=== PATIENT | male | born 1965 | race Hispanic/Latino ===

== ENCOUNTER 2019-07-16 07:24 | Day surgery (SDC) | payer SELFPAY ==
[2019-07-15 13:25] VITALS: BP 136/76
[~2019-07-16] VITALS: Ht 165.1 cm; Wt 77.7 kg
--- NOTE | 2019-07-16 07:25 | NUR ---
PRE-PROCEDURE RECEIVED TO DAY 7 FOR SCHEDULED ABCESSOGRAM VIA AMBULATING. AWAKE IN NO ACUTE DISTRESS. DENIES PAIN. DRAIN PRESENT TO Q ABDOMEN DRAINING SEROUSANGINOUS DRAINAGE. CONNECTED TO CONTINUOUS CARDIOPULMONARY MONITORING. SIDE RAILS UP X2, BED IN LOWEST POSITION, AND CALL LIGHT W/IN REACH.
[2019-07-16 07:35] VITALS: BP_SYST 125; BP_SYST 134; BP_DIAS 72; BP_DIAS 75
[2019-07-16 07:47] LABS: MEAN CORPUSCULAR HEMOGLOBIN 30.1 pg (27.0-33.0); MEAN CORPUSCULAR HGB CONC 33.3 g/dL (32.0-36.0); MEAN CORPUSCULAR VOLUME 90.4 fL (79-99); PLATELET COUNT (AUTO) 382 K/uL (130-400); RED BLOOD CELL COUNT(AUTO) 4.64 MIL/uL (4.50-6.20); WHITE BLOOD COUNT (AUTO) 6.9 K/uL (4.8-10.8)
[2019-07-16] MEDS ORDERED: SODIUM CHLORIDE 0.9% 1000ML 1,000 ML IV ONE (08:00)
--- NOTE | 2019-07-16 08:25 | NUR ---
PROCEDURE TRANSFERRED TO CR[employer] PORTFOLIO ADVISOR VIA BED FOR SCHEDULED ABSCESSOGRAM BY ROXY RODRIGUEZ RN. AWAKE IN NO ACUTE DISTRESS.
[2019-07-16] MEDS ORDERED: LIDOCAINE HCL 1% MDV 50ML VIAL ONE (08:44)
[2019-07-16] MEDS ORDERED: IODIXANOL 320 MG/ML 100 ML VIAL ONE (08:44)
[2019-07-16 09:23] VITALS: BP 125/72
--- NOTE | 2019-07-16 09:23 | NUR ---
POST-PROCEDURE RECEIVED FROM [employer] OPERATOR VIA BED S/P ABSCESSOGRAM AND DRAIN REMOVAL BY ROXY RODRIGUEZ RN. AWAKE IN NO ACUTE DISTRESS. CONNECTED TO CONTINUOUS CARDIOPULMONARY MONITORING. SIDE RAILS UP X2, BED IN LOWEST POSITION, AND CALL LIGHT W/IN REACH.
[2019-07-16 09:40] VITALS: BP 123/79
[2019-07-16 09:55] VITALS: BP 137/84
--- NOTE | 2019-07-16 10:00 | NUR ---
DIET ATE 100% OF BREAKFAST.
[2019-07-16 10:10] VITALS: BP 128/82
--- NOTE | 2019-07-16 10:25 | NUR ---
DISCHARGE DAY PT DISCHARGE INSTRUCTIONS AND PT SUMMARY REVIEWED WITH PT AND DAUGHTER. BOTH VERBALIZED UNDERSTANDING. OPPORTUNITY GIVEN TO ASK QUESTIONS. QUESTIONS ADDRESSED.
--- NOTE | 2019-07-16 10:45 | NUR ---
DISCHARGE DISCHARGED VIA W/C BY JERO, ADMITTING COUNSELOR. AWAKE IN NO ACUTE DISTRESS.
== END 2019-07-16 10:45 | disposition home or self-care (01) ==
LOC: DAH 07:24
PROVIDERS: ATTEND Surgery
DX: T85.9XXA Unspecified complication of internal prosthetic device, implant and graft, initial encounter (principal); Y83.8 Other surgical procedures as the cause of abnormal reaction of the patient, or of later complication, without mention of misadventure at the time of the procedure; K57.80 Diverticulitis of intestine, part unspecified, with perforation and abscess without bleeding; I10 Essential (primary) hypertension
CPT/HCPCS: 36415; 49424; 76080; 85027; A4215; A4221; A4222; A4223 ×2; A4663; J1644; J3490; J7030; Q9967